=== PATIENT | male | born 1955 | race Caucasian/White ===

== ENCOUNTER 2017-03-07 08:54 | Outpatient (CLI) | payer OTHER ==
[~2017-03-07] VITALS: Ht 177.8 cm; Wt 128.4 kg
[~2017-03-07 08:54] MED LIST: ASPI325T24 PO; ATOR40TA75 PO; CARV12.5 PO; CHLO125TA PO; HYDR-3713 PO; LEVO50TA5 PO; MULT1TAB28 PO; OPDI1INJ IV
[2017-03-07] MEDS ORDERED: NS 1,000 ML IV ONE (09:15)
[2017-03-07] MEDS ORDERED: LIDOCAINE 2% INJ 100 MG/5 ML SDV (FOR ANES.) As Ordered ONE (10:21)
[2017-03-07] MEDS ORDERED: PROPOFOL 200 MG/20 ML VIAL As Ordered ONE (10:21)
--- NOTE | 2017-03-07 10:33 | ROOR ---
Patient Name: Howie Whipple Procedure Date: 03/07/2017 10:11 AM Date of : 1955 Age: 61 Room: [facility] Gender: Male Note Status: Finalized Procedure: Colonoscopy Indications: High risk colon cancer surveillance: Personal history of colonic polyps, Last colonoscopy: January 2014 Providers: Harish SALTER MD Referring MD: TRINITY HELMS JR, MD Requesting Provider: Medicines: Monitored Anesthesia Care Complications: No immediate complications. Procedure: Pre-Anesthesia Assessment: - The heart rate, respiratory rate, oxygen saturations, blood pressure, adequacy of pulmonary ventilation, and response to care were monitored throughout the procedure. The Colonoscope was introduced through the anus and advanced to the cecum, identified by appendiceal orifice and ileocecal valve. The colonoscopy was performed without difficulty. The patient tolerated the procedure well. The quality of the bowel preparation was good. Findings: The perianal and digital rectal examinations were normal. Three sessile polyps were found in the sigmoid colon and descending colon. The polyps were 4 to 5 mm in size. These polyps were removed with a cold snare. Resection and retrieval were complete. Mild diverticulosis and small internal hemorrhoids. The exam was otherwise without abnormality on direct and retroflexion views. (Exam: Complete, Prep: Good or Excellent.) Impression: - Three 4 to 5 mm polyps in the sigmoid colon and in the descending colon, removed with a cold snare. Resected and retrieved. - Mild diverticulosis and small internal hemorrhoids. - The examination was otherwise normal on direct and retroflexion views. Recommendation: - Repeat colonoscopy in 3 years for surveillance. Harish Salter MD Harish SALTER MD 03/07/2017 10:33:42 AM This report has been signed electronically. Number of Addenda: 0 Note Initiated On: 03/07/2017 10:11 AM Estimated Blood Loss: Estimated blood loss: none.
[2017-03-07 10:59] VITALS: BP 143/99
== END 2017-03-07 11:05 | disposition home or self-care (01) ==
LOC: M OPP 08:54
PROVIDERS: ATTEND Internal Medicine Gastroenterology
DX: Z12.11 Encounter for screening for malignant neoplasm of colon (principal); D12.5 Benign neoplasm of sigmoid colon; D12.4 Benign neoplasm of descending colon; K57.30 Diverticulosis of large intestine without perforation or abscess without bleeding; K64.8 Other hemorrhoids; Z86.010 Personal history of colon polyps; I48.91 Unspecified atrial fibrillation; I10 Essential (primary) hypertension; E78.5 Hyperlipidemia, unspecified; Z85.528 Personal history of other malignant neoplasm of kidney; Z85.118 Personal history of other malignant neoplasm of bronchus and lung; E07.9 Disorder of thyroid, unspecified; Z92.21 Personal history of antineoplastic chemotherapy; E66.9 Obesity, unspecified; Z90.5 Acquired absence of kidney; Z87.891 Personal history of nicotine dependence; Z79.82 Long term (current) use of aspirin; Z79.899 Other long term (current) drug therapy

== ENCOUNTER → 2020-05-29 | Outpatient (CLI) | payer MEDICARE, MEDICAID ==
[~2020-05-29] MED LIST changes: +ALLO100T PO; +ASPI-255 PO; -ASPI325T24 PO; +CHLO50TA PO; +K-TA10TA2 PO
== END ==
LOC: M LABSMTC 10:27
PROVIDERS: ATTEND Anesthesiology
DX: Z01.812 Encounter for preprocedural laboratory examination (principal); Z20.828 Contact with and (suspected) exposure to other viral communicable diseases
CPT/HCPCS: C9803; U0003

== ENCOUNTER 2020-06-03 10:07 | Day surgery (SDC) | payer MEDICARE, MEDICAID ==
[~2020-06-03] VITALS: Ht 177.8 cm; Wt 123.7 kg
[~2020-06-03 10:07] MED LIST changes: -K-TA10TA2 PO; +NS 1,000 ML IV ONE
[2020-06-03] MEDS ORDERED: K-TA10TA2 PO (10:45)
[2020-06-03] MEDS ORDERED: propofoL 200 MG/20 ML VIAL As Ordered ONE (10:57)
[2020-06-03] MEDS ORDERED: LIDOCAINE 2% 100MG/5ML SDV (FOR ANES.) As Ordered ONE (10:57)
--- NOTE | 2020-06-03 11:33 | ROOR ---
Patient Name: Howie Whipple Procedure Date: 06/03/2020 11:11 AM Date of : 1955 Age: 65 Room: [facility] Gender: Male Note Status: Finalized Procedure: Colonoscopy Indications: High risk colon cancer surveillance: Personal history of colonic polyps, Last colonoscopy: February 2017 Providers: Harish SALTER MD Referring MD: TRINITY HELMS JR, MD Requesting Provider: Medicines: Monitored Anesthesia Care Complications: No immediate complications. Procedure: Pre-Anesthesia Assessment: - The heart rate, respiratory rate, oxygen saturations, blood pressure, adequacy of pulmonary ventilation, and response to care were monitored throughout the procedure. The Colonoscope was introduced through the anus and advanced to the cecum, identified by appendiceal orifice and ileocecal valve. The colonoscopy was performed without difficulty. The patient tolerated the procedure well. The quality of the bowel preparation was good. Findings: The perianal and digital rectal examinations were normal. Four sessile polyps were found in the sigmoid colon and splenic flexure. The polyps were diminutive in size. These polyps were removed with a cold snare. Resection and retrieval were complete. Mild sigmoid diverticulosis and small internal hemorrhoids. The exam was otherwise without abnormality on direct and retroflexion views. Impression: - Four diminutive polyps in the sigmoid colon and at the splenic flexure, removed with a cold snare. Resected and retrieved. - Mild sigmoid diverticulosis and small internal hemorrhoids. - The examination was otherwise normal on direct and retroflexion views. Recommendation: - Repeat colonoscopy in 3 years for surveillance. Harish Salter MD Harish SALTER MD 06/03/2020 11:33:04 AM Electronically signed by Harish SALTER MD Number of Addenda: 0 Note Initiated On: 06/03/2020 11:11 AM Estimated Blood Loss: Estimated blood loss: none.
[2020-06-03 11:50] VITALS: BP 110/62
== END 2020-06-03 12:12 | disposition home or self-care (01) ==
LOC: M OPP 10:07
PROVIDERS: ATTEND Internal Medicine Gastroenterology
DX: Z12.11 Encounter for screening for malignant neoplasm of colon (principal); Z86.010 Personal history of colon polyps; K63.5 Polyp of colon; K57.30 Diverticulosis of large intestine without perforation or abscess without bleeding; K64.8 Other hemorrhoids; Z79.82 Long term (current) use of aspirin; Z79.891 Long term (current) use of opiate analgesic; Z79.899 Other long term (current) drug therapy; F17.210 Nicotine dependence, cigarettes, uncomplicated

== ENCOUNTER → 2021-05-07 | Outpatient (REF) | payer MEDICARE, MEDICAID ==
[~2021-05-07] MED LIST changes: +K-TA10TA2 PO; -NS 1,000 ML IV ONE
== END ==
LOC: M LAB REF 16:21
PROVIDERS: ATTEND Internal Medicine
DX: C64.1 Malignant neoplasm of right kidney, except renal pelvis (principal); E03.9 Hypothyroidism, unspecified

== ENCOUNTER → 2021-06-05 | Outpatient (CLI) | payer MEDICARE, MEDICAID | LOC: M PLARAD 08:09 | PROVIDERS: ATTEND Internal Medicine Hematology & Oncology | DX: Z53.9 Procedure and treatment not carried out, unspecified reason (principal); K86.89 Other specified diseases of pancreas ==

== ENCOUNTER → 2021-11-17 | Outpatient (REF) | payer MEDICARE, MEDICAID | LOC: M LAB REF 12:22 | PROVIDERS: ATTEND Internal Medicine | DX: I11.9 Hypertensive heart disease without heart failure (principal); E11.21 Type 2 diabetes mellitus with diabetic nephropathy ==

== ENCOUNTER → 2023-08-08 | Outpatient (REF) | payer OTHER, MEDICAID ==
[~2023-08-08] MED LIST changes: -K-TA10TA2 PO; +POTA-165 PO
== END ==
LOC: M SFHCDERM 16:22
PROVIDERS: ATTEND Physician Assistant
DX: C44.222 Squamous cell carcinoma of skin of right ear and external auricular canal (principal)

== ENCOUNTER → 2023-10-10 | Day surgery (SDC) | payer OTHER, MEDICAID ==
[~2023-10-10] VITALS: Ht 177.8 cm; Wt 116.3 kg
[~2023-10-10] MED LIST changes: +JARD1TAB PO; +LIDOCAINE 2% 100MG/5ML SDV (FOR ANES.) As Ordered ONE; +POTA-149 PO; +SYNT112T2 PO; +propofoL 200 MG/20 ML VIAL As Ordered ONE
[2023-10-10] MEDS: NS 1,000 ML IV ONE (08:56)
[2023-10-10 10:44] VITALS: BP 126/69; TEMP 97; O2SAT 98
== END | disposition home or self-care (01) ==
LOC: M OPP 08:37
PROVIDERS: ATTEND Internal Medicine Gastroenterology
DX: Z86.010 Personal history of colon polyps (principal); K63.5 Polyp of colon; K64.8 Other hemorrhoids; K57.30 Diverticulosis of large intestine without perforation or abscess without bleeding; F17.200 Nicotine dependence, unspecified, uncomplicated; I48.91 Unspecified atrial fibrillation; E11.9 Type 2 diabetes mellitus without complications; Z79.02 Long term (current) use of antithrombotics/antiplatelets; Z79.620 Long term (current) use of immunosuppressive biologic; Z79.82 Long term (current) use of aspirin; Z79.890 Hormone replacement therapy; Z79.891 Long term (current) use of opiate analgesic; Z79.899 Other long term (current) drug therapy

== ENCOUNTER → 2023-10-19 | Outpatient (REF) | payer MEDICARE, OTHER ==
[~2023-10-19] MED LIST changes: -LIDOCAINE 2% 100MG/5ML SDV (FOR ANES.) As Ordered ONE; -propofoL 200 MG/20 ML VIAL As Ordered ONE
== END ==
LOC: M SFHCDERM 17:21
PROVIDERS: ATTEND Dermatology
DX: D22.21 Melanocytic nevi of right ear and external auricular canal (principal)

== ENCOUNTER → 2023-11-07 | Outpatient (REF) | payer MEDICARE, OTHER, MEDICAID ==
[2023-11-07 17:05] LABS: CK-MB VALUE MASS 3.3 NG/ML (<3.6)
[2023-11-07 17:32] LABS: MB/CK RELATIVE INDEX 2.57 (< OR =4)
[2023-11-09 08:11] LABS: LDL DIRECT 30 mg/dL (0-99)
== END ==
LOC: M LAB REF 16:24
PROVIDERS: ATTEND Internal Medicine
DX: R07.9 Chest pain, unspecified (principal); E78.00 Pure hypercholesterolemia, unspecified

== ENCOUNTER → 2023-12-28 | Outpatient (REF) | payer MEDICARE, OTHER, MEDICAID ==
[2023-12-28 14:14] LABS: HEPATITIS B SURFACE ANTIGEN NEGATIVE (NEGATIVE)
[2023-12-28 14:36] LABS: HEPATITIS C VIRUS ABY INDEX 0.02 INDEX (<0.8)
== END ==
LOC: M LAB REF 11:29
PROVIDERS: ATTEND Internal Medicine
DX: K76.0 Fatty (change of) liver, not elsewhere classified (principal); Z11.59 Encounter for screening for other viral diseases

== ENCOUNTER → 2024-02-02 | Outpatient (REF) | payer OTHER, MEDICAID, MEDICARE | LOC: M LAB REF 16:00 | PROVIDERS: ATTEND Surgery | DX: D48.5 Neoplasm of uncertain behavior of skin (principal) ==

== ENCOUNTER 2024-06-20 12:47 | Inpatient (IN) | payer OTHER, MEDICAID ==
[~2024-06-20] VITALS: Ht 177.8 cm; Wt 106.3 kg
[2024-06-20 15:26] LABS: HEMATOCRIT 35.3 % (42.0-52.0); HEMOGLOBIN 12.8 g/dl (13.5-17.5); MEAN CORPUSCULAR HEMOGLOBIN 31.5 pg (27.0-33.0); MEAN CORPUSCULAR HGB CONC 36.3 g/dl (32.0-36.5); MEAN CORPUSCULAR VOLUME 86.9 fl (80.0-96.0); RED BLOOD COUNT 4.06 10^6/uL (4.30-6.10); WHITE BLOOD COUNT 1.2 10^3/uL (4.0-10.0)
[2024-06-20 15:44] LABS: ALBUMIN 2.8 G/DL (3.2-5.2); BILIRUBIN,DIRECT 0.9 MG/DL (<0.4); BILIRUBIN,TOTAL 2.1 MG/DL (0.3-1.2); CALCIUM LEVEL 8.7 MG/DL (8.3-10.6); CREATININE FOR GFR 1.57 MG/DL (0.70-1.30); GLOMERULAR FILTRATION RATE 46.6 (>42); POTASSIUM SERUM 2.8 MMOL/L (3.5-5.1); TOTAL PROTEIN 6.2 G/DL (5.7-8.2)
[2024-06-20 16:16] LABS: PLATELET COUNT, AUTOMATED 40 10^3/uL (150-450)
[2024-06-20 16:59] LABS: PROCALCITONIN 3.06 ng/ml
[2024-06-20 17:05] LABS: C REACTIVE PROTEIN QUANTITATIV 39.7 MG/DL (<1.0)
[2024-06-20] MEDS: POTASSIUM CHLORIDE 10MEQ SR TABLET PO ONE (17:20)
[2024-06-20] MEDS: NS IV ONE (17:23)
[2024-06-20] MEDS: PIPERACILLIN/TAZOBACTAM SOD 4.5 GM in DEXTROSE 5% (D5W) ADV/MINI-BAG 50 ML IV ONE (17:26)
[2024-06-20 17:29] LABS: ATYPICAL LYMPH 6 % (0-5); LYMPHOCYTES 25 % (16-44); METAMYELOCYTES 3 % (0-0); MONOCYTES 33 % (0-5); NEUTROPHILS 27 % (28-66); TEAR DROP CELLS 3+
[2024-06-20 17:31] LABS: PLATELET ESTIMATE MARKED DECREASE (NORMAL)
[2024-06-20 17:32] LABS: SCHISTOCYTES 1+
[2024-06-20 17:45] LABS: INR 1.51; PARTIAL THROMBOPLASTIN TIME 52.5 SECONDS (24.8-34.2); PROTHROMBIN TIME 18.5 SECONDS (12.5-14.5)
[2024-06-20] MEDS ORDERED: ISOVUE-370 76% 100ML VIAL As Ordered ONE (17:56)
[2024-06-20] MEDS: ACETAMINOPHEN *IV* 1,000 MG in IV 1 EA IV ONE (19:27)
[2024-06-20] MEDS: NS 1,000 ML IV ONE (21:00)
[2024-06-20] MEDS: CIPROFLOXACIN 500MG TABLET PO SCH (21:00)
[2024-06-20] MEDS ORDERED: ACETAMINOPHEN 325 MG TAB PO PRN (21:00)
[2024-06-20] MEDS: LR 1,000 ML IV ONE (21:00)
[2024-06-20] MEDS ORDERED: ACETAMINOPHEN *IV* 1,000 MG in IV 1 EA IV PRN ×2 (21:20→21:25)
[2024-06-20] MEDS ORDERED: PROC10TA5 PO (22:05)
[2024-06-20] MEDS ORDERED: GABA-1171 PO (22:05)
[2024-06-20] MEDS ORDERED: BISA5TAB72 PO (22:05)
[2024-06-20] MEDS ORDERED: ETOP50CA PO (22:05)
[2024-06-20] MEDS ORDERED: ETOP50CA2 PO (22:05)
[2024-06-20] MEDS ORDERED: ELIQ5TAB PO (22:05)
[2024-06-20] MEDS ORDERED: ONDA-84 PO (22:05)
[2024-06-20] MEDS ORDERED: HOME MED LIST COMPLETE! XX SCH (22:05)
[2024-06-20] MEDS ORDERED: PROCHLORPERAZINE 5MG TAB PO PRN (22:55)
[2024-06-20] MEDS ORDERED: GABAPENTIN 100 MG CAP PO PRN (22:55)
[2024-06-20] MEDS ORDERED: NORCO, ANEXSIA 5/325MG TABLET (HYDROcodone/ACETAMINOPHEN) PO PRN (22:55)
[2024-06-20] MEDS ORDERED: ONDANSETRON 4MG TAB PO PRN (22:55)
[2024-06-20] MEDS: OCTREOTIDE ACETATE 100MCG/ML VIAL **SC ADMINISTRATION ONLY SC SCH (23:17)
[2024-06-20 23:35] VITALS: BP 110/79; TEMP 96.8; O2SAT 97
[2024-06-20] MEDS: CARVedilol 12.5 MG TAB PO SCH (23:54)
[2024-06-21] MEDS: LOPERAMIDE 2 MG CAPLET PO SCH (00:01)
[2024-06-21] MEDS: LEVOTHYROXINE 112MCG TABLET (0.112MG) PO SCH (00:01)
[2024-06-21] MEDS: ATORVASTATIN 20 MG TAB PO SCH (00:01)
[2024-06-21 00:12] LABS: PHOSPHORUS LEVEL 2.5 MG/DL (2.4-5.1)
[2024-06-21 04:06] VITALS: BP 102/59; TEMP 97.4; O2SAT 97
[2024-06-21 06:21] LABS: HEMATOCRIT 33.4 % (42.0-52.0); HEMOGLOBIN 11.8 g/dl (13.5-17.5); MEAN CORPUSCULAR HEMOGLOBIN 31.7 pg (27.0-33.0); MEAN CORPUSCULAR HGB CONC 35.3 g/dl (32.0-36.5); MEAN CORPUSCULAR VOLUME 89.8 fl (80.0-96.0); RED BLOOD COUNT 3.72 10^6/uL (4.30-6.10); WHITE BLOOD COUNT 2.2 10^3/uL (4.0-10.0)
[2024-06-21 06:34] LABS: PLATELET COUNT, AUTOMATED 42 10^3/uL (150-450)
[2024-06-21 06:47] LABS: ALBUMIN 2.3 G/DL (3.2-5.2); BILIRUBIN,TOTAL 1.6 MG/DL (0.3-1.2); CALCIUM LEVEL 8.4 MG/DL (8.3-10.6); CREATININE FOR GFR 1.57 MG/DL (0.70-1.30); GLOMERULAR FILTRATION RATE 46.6 (>42); MAGNESIUM LEVEL 2.2 MG/DL (1.8-2.4); TOTAL PROTEIN 5.5 G/DL (5.7-8.2)
[2024-06-21 09:00] VITALS: BP 118/64
[2024-06-21] MEDS: POTASSIUM CHLORIDE 10MEQ SR TABLET PO SCH (09:25)
[2024-06-21] MEDS: allopurinoL 100 MG TAB PO SCH (09:25)
[2024-06-21] MEDS: APIXABAN 5 MG TAB (ELIQUIS) PO SCH (09:25)
[2024-06-21] MEDS: DAPAGLIFLOZIN PROPANEDIOL 10MG TABLET (FARXIGA) PO SCH (09:25)
[2024-06-21 12:00] VITALS: BP 117/66; TEMP 97.3; O2SAT 92
[2024-06-21] MEDS: CHLORTHALIDONE 25 MG TAB PO SCH (12:02)
[2024-06-21] MEDS: POTASSIUM CHLORIDE 10MEQ SR TABLET PO ONE (13:17)
[2024-06-21 20:18] VITALS: BP 120/79; TEMP 96.8; O2SAT 94
[2024-06-22 04:18] VITALS: BP 113/69; TEMP 97; O2SAT 95
[2024-06-22 08:39] LABS: HEMATOCRIT 36.6 % (42.0-52.0); HEMOGLOBIN 12.7 g/dl (13.5-17.5); MEAN CORPUSCULAR HEMOGLOBIN 31.2 pg (27.0-33.0); MEAN CORPUSCULAR HGB CONC 34.7 g/dl (32.0-36.5); MEAN CORPUSCULAR VOLUME 89.9 fl (80.0-96.0); RED BLOOD COUNT 4.07 10^6/uL (4.30-6.10); WHITE BLOOD COUNT 6.7 10^3/uL (4.0-10.0)
[2024-06-22 08:51] LABS: PLATELET COUNT, AUTOMATED 74 10^3/uL (150-450)
[2024-06-22 09:02] LABS: CREATININE FOR GFR 1.36 MG/DL (0.70-1.30); POTASSIUM SERUM 3.2 MMOL/L (3.5-5.1)
[2024-06-22] MEDS ORDERED: CIPR500T39 PO (10:31)
[2024-06-22] MEDS ORDERED: LOPE2CA PO (10:31)
[2024-06-22] MEDS ORDERED: PHEN26CR TOP (10:31)
[2024-06-22 12:00] VITALS: BP 115/71; TEMP 97.2; O2SAT 96
[2024-06-22] MEDS ORDERED: POTASSIUM CHLORIDE 10MEQ SR TABLET PO ONE (21:00)
== END 2024-06-22 14:00 | disposition home or self-care (01) | DRG 392 ==
LOC: M ED 12:47 → M ED INP 21:00 → M MSPAV 23:37
PROVIDERS: ADMIT Student in an Organized Health Care Education/Training Program; ATTEND Student in an Organized Health Care Education/Training Program
DX: R19.7 Diarrhea, unspecified (principal); T45.1X5A Adverse effect of antineoplastic and immunosuppressive drugs, initial encounter; E03.9 Hypothyroidism, unspecified; Z92.21 Personal history of antineoplastic chemotherapy; Z92.3 Personal history of irradiation; D69.59 Other secondary thrombocytopenia; I10 Essential (primary) hypertension; I48.91 Unspecified atrial fibrillation; Z79.01 Long term (current) use of anticoagulants; Z85.528 Personal history of other malignant neoplasm of kidney; E87.6 Hypokalemia

== ENCOUNTER → 2024-07-11 | Outpatient (REF) | payer OTHER, MEDICAID, MEDICARE ==
[~2024-07-11] MED LIST changes: +BISA5TAB72 PO; +CIPR500T39 PO; +ELIQ5TAB PO; +ETOP50CA PO; +ETOP50CA2 PO; +GABA-1171 PO; +LOPE2CA PO; +ONDA-84 PO; +PHEN26CR TOP; +PROC10TA5 PO
== END ==
LOC: M LAB REF 13:26
PROVIDERS: ATTEND Internal Medicine
DX: K74.00 Hepatic fibrosis, unspecified (principal)

== ENCOUNTER → 2025-01-23 | Outpatient (REF) | payer MEDICARE, MEDICAID | LOC: M LAB REF 14:22 | PROVIDERS: ATTEND Internal Medicine | DX: K74.00 Hepatic fibrosis, unspecified (principal) ==

== ENCOUNTER → 2025-05-16 | Outpatient (CLI) | payer MEDICARE, MEDICAID | LOC: M CARPUL 15:18 | PROVIDERS: ATTEND Nurse Practitioner Family | DX: I48.91 Unspecified atrial fibrillation (principal); I08.1 Rheumatic disorders of both mitral and tricuspid valves ==